=== PATIENT | male | born 2000 | race Caucasian/White ===

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

== ENCOUNTER 2023-06-11 21:51 | Emergency (ER) | payer MEDICAID ==
[~2023-06-11] VITALS: Ht 172.7 cm; Wt 54.5 kg
[2023-06-11 23:14] LABS: BILIRUBIN,URINE SMALL (Neg); CLARITY,URINE CLEAR (Clear); COLOR,URINE YELLOW (Yellow); GLUCOSE, URINE NEGATIVE (Neg); KETONES,URINE 15 mg/dl (Neg); LEUKOCYTE ESTERASE ,URINE NEGATIVE (Neg); NITRITES, URINE NEGATIVE (Neg); OCCULT BLOOD,URINE NEGATIVE (Neg); PH,URINE 7.5 (4.8-8.0); PROTEIN,URINE 30 mg/dl (Neg)
[2023-06-11 23:28] LABS: UA COLLECTION TYPE CLN CATCH MIDSTREAM
[2023-06-11 23:29] LABS: MUCUS STRANDS MANY /LPF (Neg); SQUAMOUS EPITHELIAL CELL,UR MODERATE /LPF (FEW)
[2023-06-11 23:30] LABS: WBC,URINE 20-30 /HPF (0-4)
[2023-06-11] MEDS ORDERED: CEFD300C3 PO (23:30)
[2023-06-11 23:31] LABS: BACTERIA,URINE 2+ /HPF (Neg); RBC,URINE 0-2 /HPF (0-2)
[2023-06-11 23:43] VITALS: BP 116/72; PULSE 87; RESP 16; TEMP 98.3; O2SAT 97
== END 2023-06-11 23:46 | disposition home or self-care (01) ==
LOC: ER 21:53
DX: J20.9 Acute bronchitis, unspecified (principal); R30.0 Dysuria; F17.200 Nicotine dependence, unspecified, uncomplicated
CPT/HCPCS: 71045; 81001; 87088; 99284

== ENCOUNTER 2023-09-19 20:19 | Emergency (ER) | payer MEDICAID ==
[~2023-09-19] VITALS: Ht 172.7 cm; Wt 56.8 kg
[2023-09-19 20:24] VITALS: BP 116/51; PULSE 70; TEMP 98.3; O2SAT 98
[2023-09-19 20:57] VITALS: RESP 14
[2023-09-19] MEDS ORDERED: BENZ-38 PO (21:10)
[2023-09-19] MEDS ORDERED: ALBU8HFA INH (21:10)
== END 2023-09-19 21:26 | disposition home or self-care (01) ==
LOC: ER 20:20
DX: R05.9 Cough, unspecified (principal); R50.9 Fever, unspecified; J02.9 Acute pharyngitis, unspecified
CPT/HCPCS: 71045; 99283

== ENCOUNTER 2024-09-01 06:02 | Emergency (ER) | payer MEDICAID ==
[~2024-09-01] VITALS: Ht 172.7 cm; Wt 54.3 kg
[2024-09-01 06:05] VITALS: BP 131/61; PULSE 65; RESP 18; TEMP 98.2; O2SAT 99
[2024-09-01 06:37] LABS: BILIRUBIN,URINE NEGATIVE (Neg); CLARITY,URINE SLIGHTLY CLOUDY (Clear); COLOR,URINE YELLOW (Yellow); GLUCOSE, URINE NEGATIVE (Neg); KETONES,URINE TRACE mg/dl (Neg); LEUKOCYTE ESTERASE ,URINE NEGATIVE (Neg); NITRITES, URINE NEGATIVE (Neg); OCCULT BLOOD,URINE LARGE (Neg); PROTEIN,URINE 30 mg/dl (Neg); UROBILINOGEN,URINE 0.2 E.U/dL (0.2-1.0)
[2024-09-01 06:49] LABS: UA COLLECTION TYPE CLN CATCH MIDSTREAM
[2024-09-01 06:50] LABS: BACTERIA,URINE FEW /HPF (Neg); RBC,URINE TNTC /HPF (0-2)
[2024-09-01 06:51] LABS: CAL OXALATE CRYSTALS 1+ /HPF (NEGATIVE); MUCUS STRANDS NONE SEEN /LPF (Neg); SQUAMOUS EPITHELIAL CELL,UR NONE SEEN /LPF (FEW)
== END 2024-09-01 09:10 | disposition left against medical advice (07) ==
LOC: ER 06:03
DX: R10.9 Unspecified abdominal pain (principal); R11.2 Nausea with vomiting, unspecified; Z53.21 Procedure and treatment not carried out due to patient leaving prior to being seen by health care provider
CPT/HCPCS: 81001; 87088